=== PATIENT | male | born 1990 | race African-American/Black ===

== ENCOUNTER 2020-08-16 16:11 | Emergency (ER) | payer OTHER ==
[~2020-08-16] VITALS: Ht 177.8 cm; Wt 72.6 kg
[2020-08-16] MEDS ORDERED: PROAIR HFA8.5 GM INH (16:26)
[2020-08-16 17:00] LABS: URINE BILIRUBIN NEGATIVE (Negative); URINE BLOOD NEGATIVE (Negative); URINE CLARITY CLEAR; URINE COLOR YELLOW; URINE GLUCOSE-RANDOM* NEGATIVE (Negative); URINE KETONES 1+ (Negative); URINE LEUKOCYTES-REFLEX NEGATIVE (Negative); URINE NITRITE-REFLEX NEGATIVE (Negative); URINE PROTEIN (DIPSTICK) NEGATIVE (Negative); URINE SPECIFIC GRAVITY >= 1.030 (1.005-1.035); URINE UROBILINOGEN 0.2 E.U./dl (0.2-1.0)
[2020-08-16] MEDS ORDERED: PYRIDIUM200 MG PO (18:14)
[2020-08-16 18:26] VITALS: BP 126/78
== END 2020-08-16 18:26 ==
LOC: ER 16:11
PROVIDERS: Emergency Medicine
DX: R31.9 Hematuria, unspecified (principal); R30.0 Dysuria; R30.9 Painful micturition, unspecified; J45.909 Unspecified asthma, uncomplicated; F17.210 Nicotine dependence, cigarettes, uncomplicated; Z79.899 Other long term (current) drug therapy